=== PATIENT | female | born 1975 | race Caucasian/White ===

== ENCOUNTER 2019-09-15 17:50 | Emergency (ER) | payer BC, OTHER ==
[~2019-09-15] VITALS: Ht 160 cm; Wt 55.3 kg
[~2019-09-15 17:50] MED LIST: METR500T PO; OMEP-110 PO; ONDA4TAB7 PO
[2019-09-15 19:05] LABS: BASOPHILS # (AUTO) 0.03 x10^3/uL (0-0.1); BASOPHILS % (AUTO) 1 % (0-1); EOSINOPHILS # (AUTO) 0.51 x10^3/uL (0-0.4); EOSINOPHILS % (AUTO) 7 % (1-7); LYMPHOCYTES # (AUTO) 3.12 x10^3/uL (1-3.4); LYMPHOCYTES % (AUTO) 44 % (22-44); MD NO; MEAN CORPUSCULAR HEMOGLOBIN 31.3 pg (27.0-34.8); MEAN CORPUSCULAR HGB CONC 33.3 g/dL (32.4-35.8); MEAN CORPUSCULAR VOLUME 94.2 fL (80-100); MEAN PLATELET VOLUME 8.1 fL (7.4-10.4); MONOCYTES % (AUTO) 6 % (2-9); NEUTROPHILS # (AUTO) 2.98 x10^3/uL (1.8-6.8); NEUTROPHILS % (AUTO) 42 % (42-75); PLATELET COUNT 273 x10^3/uL (130-400); RED CELL DISTRIBUTION WIDTH 12.2 % (9.6-15.2)
--- NOTE | 2019-09-15 19:05 | NUR ---
UA SENT TO LAB
[2019-09-15 19:13] LABS: ALANINE AMINOTRANSFERASE 21 U/L (12-78); ALBUMIN 3.7 g/dL (3.4-5.0); ANION GAP 3 mmol/L (5-15); CALCIUM 9.1 mg/dL (8.5-10.1); CHLORIDE 108 mmol/L (98-107)
[2019-09-15 19:15] LABS: MICROSCOPIC INDICATED
[2019-09-15 19:16] LABS: ALKALINE PHOSPHATASE 60 U/L (45-117); BILIRUBIN,TOTAL 0.6 mg/dL (0.2-1.0); CREATININE 0.74 mg/dL (0.55-1.02); TOTAL PROTEIN 7.5 g/dL (6.4-8.2)
[2019-09-15 19:22] LABS: CULTURE INDICATED? YES
--- NOTE | 2019-09-15 19:56 | NUR ---
PT AMBULATED TO ROOM W/ A STEADY GAIT AT THIS TIME.
--- NOTE | 2019-09-15 20:00 | NUR ---
THIS IS A 44 YO F W/ C/O INTERMITTENT LUQ PAIN 09/25 X3 DAYS. PT DENIES N/V/D. PT IS RESTING ON [employer] W/ CALL LIGHT IN REACH. VS STABLE, CONNECTED TO MONITORING. AWAITING ED EVAL.
--- NOTE | 2019-09-15 20:55 | NUR ---
FLORENCIO ELKINS IN ROOM.
[2019-09-15] MEDS ORDERED: MAALOX/HYOSCYAMINE/LIDOCAINE 45 ML BTL ONE (21:26)
[2019-09-15 21:28] VITALS: BP 106/71
[2019-09-15] MEDS ORDERED: MAALOX/HYOSCYAMINE/LIDOCAINE 45 ML BTL PO ONE (21:30)
--- NOTE | 2019-09-15 22:05 | NUR ---
Patient given discharge instructions and they have confirmed that they understand the instructions. Patient ambulatory with steady gait.
== END 2019-09-15 22:06 | disposition home or self-care (01) ==
LOC: ED 21:45
DX: K21.9 Gastro-esophageal reflux disease without esophagitis (principal); R10.12 Left upper quadrant pain; E11.9 Type 2 diabetes mellitus without complications; Z90.49 Acquired absence of other specified parts of digestive tract; Z98.51 Tubal ligation status
CPT/HCPCS: 36415; 80053; 81001; 83690; 85025; 87086; 99283